=== PATIENT | male | born 2000 | race Two or more races ===

== ENCOUNTER 2024-07-07 21:13 | Emergency (ER) | payer SELFPAY ==
[2024-07-07] MEDS ORDERED: IPRATROPIUM BROM 0.5MG/2.5ML ONE (23:31)
[2024-07-07] MEDS ORDERED: METHYLPREDNISOLONE 125 MG INJ ONE (23:31)
[2024-07-07] MEDS ORDERED: LEVALBUTEROL 1.25 MG/3 ML NEB ONE (23:31)
[2024-07-07] MEDS ORDERED: NA CHLORIDE 0.9% 1,000 ML ONE (23:31)
[2024-07-08 00:11] LABS: Absolute Basophils 0.1 K/uL (0-0.5); Absolute Eosinophils 1.4 K/uL (0-0.5); Absolute Lymphocytes (CBC) 3.6 K/uL (0.7-4.9); Absolute Monocytes 0.8 K/uL (0.1-1.3); Absolute Neutrophil 6.2 K/uL (1.8-8.0); Basophils % 0.9 % (0-1.3); Eosinophils % 11.6 % (0-4.4); Hematocrit 47.1 % (39.6-49.0); Hemoglobin 15.9 g/dL (13.6-17.9); Lymphocytes % 29.7 % (15.3-44.8); MCHC 33.7 g/dL (32.0-36.0); MPV 8.8 fL (7.6-11.3); Monocytes % 6.5 % (3.3-12.3); Neutrophils % 51.3 % (41.7-73.7); Nucleated Red Blood Cells % 0.2 % (0-0); Platelets 231 thou/uL (152-406); RBC Red Blood Cell Count 5.12 M/uL (4.33-5.43); Red Cell Distribution Width 13.1 % (12.1-15.2)
[2024-07-08 00:14] LABS: PT Prothrombin Time 11.9 SECONDS (9.4-12.5); Protime INR 1.06
[2024-07-08 02:08] LABS: Albumin 3.9 g/dL (3.4-5.0); Albumin/Globulin Ratio 1.2 (1.1-1.8); Anion Gap 10.7 mEq/L (5.0-15.0); Bilirubin Total 0.8 mg/dL (0.2-1.0); Globulin 3.3 g/dL (2.3-3.5); Protein, Total 7.2 g/dL (6.4-8.2)
[2024-07-08] MEDS ORDERED: predniSONE 20 MG TAB ONE (02:16)
[2024-07-08] MEDS ORDERED: AZITHROMYCIN 250 MG TAB ONE (02:17)
--- NOTE | 2024-07-08 02:19 | EDPHYS ---
Physician Documentation [facility] Name: Chadwick Alford Age: 23 yrs Sex: Male : 2000 Arrival Date: 07/07/2024 Time: 21:13 Bed 10 Private MD: ED Physician Dayne Greco HPI: 07/08 02:14 This 23 yrs old Male presents to ER via Ambulatory with complaints of PT tricia STATES HE HAS BEEN COUGHING UP BLOOD FOR APPROX 1 WEEK, Chest Pain. 02:14 The patient or guardian reports chest pain that is located primarily in the anterior tricia chest wall, bilaterally. The pain does not radiate. Historical: - Allergies: 07/07 22:06 No Known Allergies; jb4 - PMHx: 22:06 Asthma; jb4 - PSHx: 22:06 Appendectomy; jb4 - Immunization history:: Adult Immunizations up to date. - Infectious Disease History:: Denies. - Social history:: Smoking status: Reported history of juuling and/or vaping. Patient uses street drugs, marijuana. ROS: 07/08 02:14 Constitutional: Negative for fever, chills, and weight loss, Eyes: Negative for injury, tricia pain, redness, and discharge, ENT: Negative for injury, pain, and discharge, Neck: Negative for injury, pain, and swelling, Cardiovascular: Negative for chest pain, palpitations, and edema, Abdomen/GI: Negative for abdominal pain, nausea, vomiting, diarrhea, and constipation, Back: Negative for injury and pain, : Negative for injury, bleeding, discharge, and swelling, MS/Extremity: Negative for injury and deformity, Skin: Negative for injury, rash, and discoloration, Neuro: Negative for headache, weakness, numbness, tingling, and seizure, Psych: Negative for depression, anxiety, suicide ideation, homicidal ideation, and hallucinations, Allergy/Immunology: Negative for hives, rash, and allergies, Endocrine: Negative for neck swelling, polydipsia, polyuria, polyphagia, and marked weight changes, Hematologic/Lymphatic: Negative for swollen nodes, abnormal bleeding, and unusual bruising, Respiratory: Positive for cough, "sounds productive", hemoptysis, Exam: 02:14 Constitutional: This is a well developed, well nourished patient who is awake, alert, tricia and in no acute distress. Head/Face: Normocephalic, atraumatic. Eyes: Pupils equal round and reactive to light, extra-ocular motions intact. Lids and lashes normal. Conjunctiva and sclera are non-icteric and not injected. Cornea within normal limits. Periorbital areas with no swelling, redness, or edema. ENT: Nares patent. No nasal discharge, no septal abnormalities noted. Tympanic membranes are normal and external auditory canals are clear. Oropharynx with no redness, swelling, or masses, exudates, or evidence of obstruction, uvula midline. Mucous membranes moist. Neck: Trachea midline, no thyromegaly or masses palpated, and no cervical lymphadenopathy. Supple, full range of motion without nuchal rigidity, or vertebral point tenderness. No Meningismus. Chest/axilla: Normal chest wall appearance and motion. Nontender with no deformity. No lesions are appreciated. Cardiovascular: Regular rate and rhythm with a normal S1 and S2. No gallops, murmurs, or rubs. Normal PMI, no JVD. No pulse deficits. Abdomen/GI: Soft, non-tender, with normal bowel sounds. No distension or tympany. No guarding or rebound. No evidence of tenderness throughout. Back: No spinal tenderness. No costovertebral tenderness. Full range of motion. Male : Normal genitalia with no discharge or lesions. Skin: Warm, dry with normal turgor. Normal color with no rashes, no lesions, and no evidence of cellulitis. MS/ Extremity: Pulses equal, no cyanosis. Neurovascular intact. Full, normal range of motion. Neuro: Awake and alert, GCS 15, oriented to person, place, time, and situation. Cranial nerves II-XII grossly intact. Motor strength 5/5 in all extremities. Sensory grossly intact. Cerebellar exam normal. Normal gait. Psych: Awake, alert, with orientation to person, place and time. Behavior, mood, and affect are within normal limits. 02:14 Respiratory: the patient does not display signs of respiratory distress, Respirations: labored breathing, is not present, asymmetrical chest movement, is not seen, accessory muscle usage, is absent, grunting, is not present, nasal flaring, is not appreciated, paradoxical chest movement, is absent, prolonged exhalation, is not present, Vital Signs: 07/07 22:04 BP 143 / 99; Pulse 69; Resp 16; Temp 98.2(TE); Pulse Ox 99% on R/A; Weight 68.04 kg jb4 (R); Height 5 ft. 6 in. (R); Pain 6/10; 22:04 Body Mass Index 24.21 (68.04 kg, 167.64 cm) [facility] 22:04 Pain Scale: Adult jb4 MDM: 22:31 Patient medically screened. [facility] 07/08 02:16 Antibiotic administration: The patient is discharged and will get outpatient [facility] antibiotics, Zithromax. Differential diagnosis: obstructed airway, bronchitis, flu, URI, costochondritis, esophagitis, gastritis, pneumonia, pneumothorax, pulmonary embolus, stable angina, thoracic aortic disection, unstable angina. HEART Score: History: Slightly Suspicious (0), Age: < or = 45 years (0), Risk Factors: 1 or 2 risk factors (1), [Active Smoker]. Differential Diagnosis: Obstructed Airway Bronchitis Influenza Upper Respiratory Infection Sinusitis Pharyngitis Otitis Media Allergic Rhinitis Asthma Exacerbation Viral Syndrome Pneumonia Tracheal Injury. SAMMY Risk Score: TOTAL SCORE = 0. Data reviewed: vital signs, nurses notes, lab test result(s), radiologic studies, plain films. Consideration of Admission/Observation Escalation of care including admission/observation considered. I considered the following discharge prescriptions or medication management in the emergency department Medications were administered in the Emergency Department. See MAR. Independent interpretation of the following test(s) in the Emergency Department X-Ray: My interpretation is cxr. Test considered but Not performed: MRI: no ct chest. Historians other than the Patient: Friend: friend well informed. Care significantly affected by the following chronic conditions: asthma, smoker. Counseling: I had a detailed discussion with the patient and/or guardian regarding the historical points, exam findings, and any diagnostic results supporting the discharge/admit diagnosis, lab results, radiology results, the need for outpatient follow up, for definitive care, a family practitioner, a hydrometeorologist. 07/07 22:32 Order name: CBC with Diff; Complete Time: 02:13 [facility] 07/07 22:32 Order name: Comprehensive Metabolic Panel [facility] 07/07 22:32 Order name: PT-INR; Complete Time: 02:13 [facility] 07/07 22:32 Order name: Chest Pa And Lat (2 Views) XRAY [facility] 07/08 00:13 Order name: Misc. Order: RECOLLECT GREEN TOP; Complete Time: 01:36 rv1 Administered Medications: 07/07 23:51 Drug: NS 0.9% IV 1000 ml IV at 1 bolus Per protocol; 1000 mL bolus Route: IV; Rate: 1 jb4 bolus; Site: right antecubital; 23:52 Drug: Levalbuterol Inhalation 2.5 mg Inhalation once Route: Inhalation; jb4 23:52 Drug: Ipratropium Inhalation Aerosol 0.5 mg Inhalation once Route: Inhalation; jb4 23:52 Drug: MethylPrednisoLONE IVP 125 mg IVP once Route: IVP; Site: right antecubital; jb4 07/08 02:29 Drug: AZITHromycin PO 500 mg PO once Route: PO; pc2 02:30 Drug: predniSONE PO 20 mg PO once Route: PO; pc2 Disposition Summary: 07/08/24 02:19 Discharge Ordered Notes: Location: Home tricia Problem: new tricia Symptoms: have improved tricia Condition: Stable tricia Diagnosis - Hemoptysis tricia - Mild persistent asthma tricia - Acute upper respiratory infection, unspecified tricia - Tobacco abuse counseling tricia - Tobacco use tricia Followup: tricia - With: Private Physician - When: 2 - 3 days - Reason: Recheck today's complaints, Continuance of care, Re-evaluation by your physician Followup: tricia - With: Bebo Larson MD - When: 2 - 3 days - Reason: Recheck today's complaints, Re-evaluation by your physician Discharge Instructions: - Discharge Summary Sheet tricia - Hemoptysis tricia - Self-Destructive Behavior tricia - Steps to Quit Smoking tricia - Health Risks of Smoking tricia - Upper Respiratory Infection, Adult tricia - Cool Mist Vaporizer tricia - Upper Respiratory Infection, Adult, [id number] tricia - Steps to Quit Smoking, [id number] tricia - Cough, Adult tricia Forms: - Medication Reconciliation Form tricia - Antibiotic Education tricia - Prescription Opioid Use tricia - Patient Portal Instructions tricia - Leadership Thank You Letter [facility] Prescriptions: - Symbicort 160-4.5 mcg/actuation Inhalation HFA Aerosol Inhaler - inhale 2 inhalation INHALATION route every 12 hours; 1 unit; Refills: 0, tricia Product Selection Permitted - albuterol sulfate 90 mcg/actuation Inhalation HFA Aerosol Inhaler - inhale 2 inhalation INHALATION route every 4-6 hours as needed for shortness of tricia breath or wheezing; 2 unit; Refills: 0, Product Selection Permitted - Pepcid 20 mg Oral tablet - take 1 tablet ORAL route every 12 hours for 21 days; 42 tablet; Refills: 0, tricia Product Selection Permitted - Prednisone 20 mg Oral Tablet - take 2 tablets ORAL route once daily for 5 days; 10 tablet; Refills: 0, Product tricia Selection Permitted - Zithromax 500 mg Oral Tablet - take 1 tablet ORAL route once daily for 5 days; 5 tablet; Refills: 0, Product tricia Selection Permitted Signatures: Dispatcher [employer] EDMS Dayne Greco MD MD cha Bryson, James, RN RN jb4 [facility] rv1 Sandee Christiansen, RN RN pc2 Corrections: (The following items were deleted from the chart) 07/07 22:07 22:06 Social history: Smoking status: Reported history of juuling and/or vaping. jb4 jb4 22:33 22:33 CBC+H.LAB.BRZ ordered. EDMS EDMS 22:33 22:33 COMPREHENSIVE METABOLIC PANEL+C.LAB.BRZ ordered. EDMS EDMS 22:33 22:33 PROTIME (+INR)+COAG.LAB.BRZ ordered. EDMS EDMS 22:33 22:33 Chest Pa And Lat (2 Views)+RAD.RAD.BRZ ordered. EDMS EDMS
--- NOTE | 2024-07-08 02:19 | ER ---
Nurse's Notes [facility] Name: Chadwick Alford Age: 23 yrs Sex: Male : 2000 Arrival Date: 07/07/2024 Time: 21:13 Bed 10 Private MD: Diagnosis: Hemoptysis;Mild persistent asthma;Acute upper respiratory infection, unspecified;Tobacco abuse counseling;Tobacco use Presentation: 07/07 22:04 Chief complaint: Patient states: I have had a cough and have been coughing up blood for jb4 the past week and a half. I also have asthma and it's hard to breathe. Coronavirus screen: Client presents with at least one sign or symptom that may indicate coronavirus-19. Standard/surgical mask placed on the client. Provider contacted for isolation considerations. Ebola Screen: No symptoms or risks identified at this time. Initial Sepsis Screen: Does the patient meet any 2 criteria? No. Patient's initial sepsis screen is negative. Does the patient have a suspected source of infection? No. Patient's initial sepsis screen is negative. Risk Assessment: Do you want to hurt yourself or someone else? Patient reports no desire to harm self or others. Onset of symptoms was July 07, 2024. Transition of care: patient was not received from another setting of care. 22:04 Method Of Arrival: Ambulatory jb4 22:04 Acuity: ERIKA 4 jb4 Triage Assessment: 22:06 General: Appears in no apparent distress. uncomfortable, Behavior is calm, cooperative. jb4 Pain: Complains of pain in "airway". Cardiovascular: Patient's skin is warm and dry. Respiratory: Reports cough that is productive, persistent pain with cough pain with respiration Airway is patent Respiratory effort is even, unlabored, Respiratory pattern is regular, symmetrical. Historical: - Allergies: 22:06 No Known Allergies; jb4 - PMHx: 22:06 Asthma; jb4 - PSHx: 22:06 Appendectomy; jb4 - Immunization history:: Adult Immunizations up to date. - Infectious Disease History:: Denies. - Social history:: Smoking status: Reported history of juuling and/or vaping. Patient uses street drugs, marijuana. Vital Signs: 22:04 BP 143 / 99; Pulse 69; Resp 16; Temp 98.2(TE); Pulse Ox 99% on R/A; Weight 68.04 kg jb4 (R); Height 5 ft. 6 in. (R); Pain 6; 22:04 Body Mass Index 24.21 (68.04 kg, 167.64 cm) jb4 22:04 Pain Scale: Adult jb4 ED Course: 21:17 Patient arrived in ED. jj6 22:06 Triage completed. jb4 22:06 Arm band placed on right wrist. jb4 22:31 Dayne Greco MD is Attending Physician. [facility] 23:02 Chest Pa And Lat (2 Views) XRAY In Process Unspecified. [facility] 07/08 02:18 Bebo Larson MD is Referral Physician. tricia Administered Medications: 07/07 23:51 Drug: NS 0.9% IV 1000 ml IV at 1 bolus Per protocol; 1000 mL bolus Route: IV; Rate: 1 jb4 bolus; Site: right antecubital; 23:52 Drug: Levalbuterol Inhalation 2.5 mg Inhalation once Route: Inhalation; jb4 23:52 Drug: Ipratropium Inhalation Aerosol 0.5 mg Inhalation once Route: Inhalation; jb4 23:52 Drug: MethylPrednisoLONE IVP 125 mg IVP once Route: IVP; Site: right antecubital; jb4 07/08 02:29 Drug: AZITHromycin PO 500 mg PO once Route: PO; pc2 02:30 Drug: predniSONE PO 20 mg PO once Route: PO; pc2 Outcome: 02:19 Discharge ordered by . [facility] 03:09 Patient left the ED. jb4 Signatures: Dispatcher [employer] [facility] Dayne Greco MD MD cha Bryson, James RN RN jb4 Sarah Christianson Sandee Christiansen, RN RN pc2 Corrections: (The following items were deleted from the chart) 07/07 22:07 22:06 Social history: Smoking status: Reported history of juuling and/or vaping. jb4 jb4
[2024-07-08 02:35] LABS: Potassium 3.7 mEq/L (3.5-5.1)
[2024-07-08 03:14] VITALS: BP 143/99; TEMP 98.2; O2SAT 99
--- NOTE | 2024-07-08 15:47 | RAD REPORT ---
EXAM DESCRIPTION: Chest 2 Views AP PA Lateral FINDINGS: Trachea midline. Heart size and pulmonary vessels within normal limits. Lungs clear without evidence of consolidation, mass, or significant pulmonary edema. No significant pleural effusion or pneumothorax. Bones unremarkable. IMPRESSION: Normal chest radiograph. Electronically signed by: Erik Ibarra MD 07/07/2024 11:32 PM CDT RP Due to temporary technical issues with the PACS/Fluency reporting system, reports are being signed by the in house radiologist without review as a courtesy to ensure prompt reporting. The interpreting r adiologist is fully responsible for the content of the report.
== END 2024-07-08 03:09 | disposition home or self-care (01) ==
LOC: ER 21:13
DX: R04.2 Hemoptysis (principal); J45.30 Mild persistent asthma, uncomplicated; J06.9 Acute upper respiratory infection, unspecified; Z71.6 Tobacco abuse counseling; Z72.0 Tobacco use
CPT/HCPCS: 36415; 71046; 80053; 85025; 85610; 96374; 99284; J2919; J7030; J7512; J7614; J7644